=== PATIENT | female | born 1990 | race Caucasian/White ===

== ENCOUNTER 2018-02-21 18:23 | Emergency (ER) | payer MEDICAID, OTHER ==
[~2018-02-21] VITALS: Wt 66.4 kg
--- NOTE | 2018-02-21 20:26 | ERD ---
ER Documentation Chief Complaint Chief Complaint low ap x2 weeks radiates to back 8 weeks HPI 27-year-old 8-week female presents with lower bilateral abdominal pain for the past 2 weeks. Also states lower back pain for same amount of time. Vomited in the mornings. Denies dysuria, hematuria, saddle numbness, incontinence, lower extremity weakness or numbness. Denies fevers, diarrhea. Denies past medical history. Denies allergies. Denies medications. 2 C- sections. Denies alcohol, tobacco, drug use. Up to date on vaccines. ROS All systems reviewed and are negative except as per history of present illness. Medications Home Meds Active Scripts Acetaminophen* (Tylophen*) 500 Mg Capsule, 1 CAP PO Q6H PRN for PAIN AND OR ELEVATED TEMP, #30 CAP Prov:KHRIS DALY 02/21/18 Allergies Allergies: Coded Allergies: No Known Allergy (Unverified , 02/21/18) PMhx/Soc Medical and Surgical Hx: pt denies Medical Hx, pt denies Surgical Hx Hx Alcohol Use: No Hx Substance Use: No Hx Tobacco Use: No Smoking Status: Never smoker FmHx Family History: No diabetes, No coronary disease, No other Physical Exam Vitals Vital Signs Date Temp Pulse Resp B/P (MAP) Pulse Ox O2 O2 Flow FiO2 Time Delivery Rate 02/21/18 98.3 74 20 116/64 99 18:36 (81) Physical Exam General: Well developed, well nourished. No acute distress. Head: Atraumatic. No sinus tenderness to palpation. Heart: RR w/o murmur, rubs, or gallops. Lungs: Clear to auscultation bilaterally w/o wheezes, crackles, rhonchi. Symmetric rise and fall. Equal breath sounds. Abdomen: Tenderness to palpation in the right lower quadrant and left lower quadrant. Suprapubic tenderness. otherwise soft, nontender, with no rigidity or guarding noted. No masses, lesions, or ecchymoses. Normoactive bowel sounds. Patient ambulatory. No tenderness to palpation in splenic area or splenomegaly. No CVA tenderness. Back: Moderate tenderness to palpation bilateral paraspinous muscles lower back. Full ROM. No midline tenderness. No step offs, bony deformity, masses, erythema, or edema noted. Extremities: 5/5 strength and full ROM of upper and lower extremeties bilaterally. Distal sensation and pulses intact. Psych: Normal mood and affect. Result Diagram: 02/21/18201102/21/182011 Results 24 hrs Laboratory Tests Test 02/21/18 20:11 02/21/18 20:12 Urine Color YELLOW Urine Clarity CLEAR Urine pH 6.0 Urine Specific Antelope 1.016 Urine Ketones NEGATIVE mg/dL Urine Nitrite NEGATIVE mg/dL Urine Bilirubin NEGATIVE mg/dL Urine Urobilinogen NEGATIVE mg/dL Urine Leukocyte Esterase NEGATIVE Davy/ul Urine Hemoglobin NEGATIVE mg/dL Urine Glucose NEGATIVE mg/dL Urine Total Protein NEGATIVE mg/dl White Blood Count 7.8 10^3/ul Red Blood Count 4.18 10^6/ul Hemoglobin 12.6 g/dl Hematocrit 36.2 % Mean Corpuscular Volume 86.6 fl Mean Corpuscular Hemoglobin 30.1 pg Mean Corpuscular Hemoglobin Concent 34.8 g/dl Red Cell Distribution Width 12.3 % Platelet Count 243 10^3/UL Mean Platelet Volume 11.1 fl Immature Granulocytes % 0.100 % Neutrophils % 64.3 % Lymphocytes % 26.2 % Monocytes % 7.9 % Eosinophils % 1.1 % Basophils % 0.4 % Nucleated Red Blood Cells % 0.0 /100WBC Immature Granulocytes # 0.010 10^3/ul Neutrophils # 5.0 10^3/ul Lymphocytes # 2.1 10^3/ul Monocytes # 0.6 10^3/ul Eosinophils # 0.1 10^3/ul Basophils # 0.0 10^3/ul Nucleated Red Blood Cells # 0.0 10^3/ul Sodium Level 137 mmol/L Potassium Level 3.5 mmol/L Chloride Level 102 mmol/L Carbon Dioxide Level 25 mmol/L Anion Gap 10 Blood Urea Nitrogen 13 mg/dl Creatinine 0.47 mg/dl Est Glomerular Filtrat Rate mL/min > 60 mL/min Glucose Level 95 mg/dl Calcium Level 9.7 mg/dl Total Bilirubin 0.8 mg/dl Direct Bilirubin 0.00 mg/dl Indirect Bilirubin 0.8 mg/dl Aspartate Amino Transf (AST/SGOT) 47 IU/L Alanine Aminotransferase (ALT/SGPT) 54 IU/L Alkaline Phosphatase 75 IU/L Total Protein 8.2 g/dl Albumin 4.8 g/dl Globulin 3.40 g/dl Albumin/Globulin Ratio 1.41 Beta HCG, Quantitative 05042.0 mIU/ml Procedures/MDM DIAGNOSTIC IMAGING REPORT Patient: KAREN SHEROWOD : 1990 Age: 27 Sex: F MR #: [id number] DOS: 02/21/181999 Ordering MD: KHRIS DALY Location: [facility] [place] Room/Bed: PROCEDURE: US OB. CLINICAL INDICATION: Abdominal pain TECHNIQUE: Transabdominal views of the pelvis are available for review. COMPARISON: No prior studies are available for comparison. FINDINGS: There is a single intrauterine gestation with the crown-rump length measuring 1.7 cm, corresponding to a gestational age of 8 weeks and 1 day. The heart rate is noted at 161 bpm. The ovaries are normal in size and echogenicity. Normal Doppler flow is identified in both ovaries. The right ovary measures 2.6 x 1.2 x 2.1 cm. The left ovary measures 3.1 x 1.7 x 2.1 cm. There is no free fluid. RPTAT: AA IMPRESSION: Single live intrauterine with an estimated gestational age of 8 weeks and 1 day, based on ultrasound measurements. SUSAN based on ultrasound measurements is 10/02/2018. .Charles Sharma MD, MD Date Time Electronically viewed and signed by .Charles Sharma MD, MD on 02/21/2018 20:43 .S/ CC: KHRIS DALY [id number] ER Course: CBC, UA, beta quant HCG, type and RH, vaginal US/abdominal US ordered. All WNL. MDM: CBC, UA, beta quant HCG, type and RH, vaginal US/abdominal US ordered. All results within limits. Ultrasound showed live intrauterine I have low suspicion of UTI based on. I have low suspicion for ectopic based on results of US, hemodynamic stability, physical exam and patient history. I have low suspicion for septic , appendicitis, cholecystitis, bowel obstruction, ovarian torsion, symptomatic anema, PID, surgical abdomen, or other life threatening conditions based on patient history, physical exam, and lab/imaging results. I have low suspicion of UTI based on normal UA and physical exam find ings. I have low suspicion of cauda equina, spinal abscess, or spinal fracture based on physical exam patient history. Patient given Rx for Tylenol. Patient discharged with strict ER precautions. Patient advised to follow up with PMD and flue gas analyst. All questions answered at discharge. Departure Diagnosis: Primary Impression: Back pain affecting Trimester: first trimester Qualified Codes: O99.89 - Other specified diseases and conditions complicating , childbirth and the p uerperium; M54.9 - Dorsalgia, unspecified Additional Impression: Abdominal pain affecting Condition: KHRIS Yao Feb 21, 2018 20:26
[2018-02-21] MEDS ORDERED: ACET500C5 PO (21:40)
== END 2018-02-21 22:24 | disposition home or self-care (01) ==
LOC: FTE 18:23
DX: O99.89 Other specified diseases and conditions complicating pregnancy, childbirth and the puerperium (principal); M54.9 Dorsalgia, unspecified; R10.30 Lower abdominal pain, unspecified; Z3A.08 8 weeks gestation of pregnancy
CPT/HCPCS: 76801; 80053; 81003; 84702; 85025; 86900; 86901; Z7502